=== PATIENT | male | born 1990 | race Caucasian/White ===

== ENCOUNTER 2021-06-12 10:55 | Emergency (ER) | payer MEDICAID ==
[2021-06-12] MEDS ORDERED: Sodium Chloride 0.9% 2.5 ML Syringe FLUSH PRN (11:49)
[2021-06-12] MEDS ORDERED: Sodium Chloride 0.9% 10 ML Syringe FLUSH PRN (11:49)
[2021-06-12] MEDS ORDERED: Diazepam 5 MG Tab PO ONE (11:49)
[2021-06-12] MEDS ORDERED: Ketorolac 30 MG/ML SDV IVPUSH ONE (11:49)
--- NOTE | 2021-06-12 11:53 | EDM.PDOC ---
ED HPI GENERAL MEDICAL PROBLEM - General Chief Complaint: Genitourinary Problem Stated Complaint: PAIN IN BACK SIDES AND STOMACH Time Seen by Provider: 06/12/21 11:38 - History of Present Illness INITIAL COMMENTS - FREE TEXT/NARRATIVE: 31-year-old male presenting with what was initially back pain and is now more left flank pain radiating down into the leg. Family reports that the back pain initially started 4 days ago. Patient reports at that time it was more a midline bilateral lower back pain. Starting over the last 24 hours it has become more severe and focused more on the left side with radiation down the back of the leg. Pain seemed to worsen after going on a bike ride. No dysuria or hematuria no nausea or vomiting. Pain worsens with any movement any as to sit up and stand very slowly. No urinary or bowel incontinence no history of IV drug use. No fevers. Pain currently moderate to severe. Patient concerned about potential kidney stone or kidney pain. back Pain Score (Numeric/FACES): 6 - Related Data Allergies Allergy/AdvReac Type Severity Reaction Status Date / Time No Known Allergies Allergy Verified 06/12/21 11:29 Home Meds: Home Meds . [No Known Home Meds] 06/12/21 [History] Past Medical History - Past Health History Medical/Surgical History: Denies Medical/Surgical History Respiratory History: Reports: Asthma Social & Family History - Family History Family Medical History: No Pertinent Family History - Tobacco Use Tobacco Use Status *Q: Current Every Day Tobacco User Years of Tobacco use: 8 Packs/Tins Daily: 0.5 - Caffeine Use Caffeine Use: Reports: None - Alcohol Use Days Per Week of Alcohol Use: 7 Number of Drinks Per Day: 6 Total Drinks Per Week: 42 - Recreational Drug Use Recreational Drug Use: No ED ROS GENERAL - Review of Systems Review Of Systems: See Below Free Text/Narrative/Comment: General: No fever. Skin: No rash. Eyes: No vision problems. ENT: No sore throat. Neck: No neck stiffness. Respiratory: No shortness of breath. Cardiac: No chest pain. Gastrointestinal: No nausea, vomiting or abdominal pain. Urinary: No dysuria. Musculoskeletal: Per HPI Neurologic: No headache. ED EXAM, GENERAL - Physical Exam Exam: See Below Free Text/Narrative:: General Appearance: No acute distress, appears comfortable Skin: No rash HEENT: Normocephalic/atraumatic, sclera anicteric, mucous membranes moist Neck: Normal range of motion Chest and Lungs: Bilateral breath sounds, clear to auscultation Cardiovascular: Regular rate and rhythm Abdomen: Soft, non-tender Back: No midline tenderness step-off or deformity there is tenderness with mild spasm in the left paraspinal musculature at the levels L4-L5. Strength is 5 out of 5 in the bilateral hips knees and ankles but patient has significant pain with left hip flexion testing as well as left knee flexion testing. Sensation is grossly intact good pulses in the bilateral lower extremities. Musculoskeletal: No edema or tenderness Neurologic: Awake, alert, no obvious deficits, moving all extremities Psychiatric: Appropriate, cooperative Course - Vital Signs Last Recorded V/S: Last Vital Signs Temp 98.5 F 06/12/21 11:29 Pulse 95 06/12/21 11:29 Resp 16 06/12/21 11:29 BP 144/77 H 06/12/21 11:29 Pulse Ox 99 06/12/21 11:29 - Orders/Labs/Meds Orders: Active Orders 24 hr Category Date Time Status Sodium Chloride 0.9% [Saline Flush] Med 06/12/21 11:49 Active 10 ml FLUSH ASDIRECTED PRN Sodium Chloride 0.9% [Saline Flush] Med 06/12/21 11:49 Active 2.5 ml FLUSH ASDIRECTED PRN Saline Lock Insert [OM.PC] Stat Oth 06/12/21 11:49 Ordered Medication Orders Sodium Chloride (Sodium Chloride 0.9% 10 Ml Syringe) 10 ml FLUSH ASDIRECTED PRN PRN Reason: Keep Vein Open Last Admin: 06/12/21 12:14 Dose: 10 ml Documented by: RAFAEL Sodium Chloride (Sodium Chloride 0.9% 2.5 Ml Syringe) 2.5 ml FLUSH ASDIRECTED PRN PRN Reason: Keep Vein Open Last Admin: 06/12/21 12:14 Dose: 2.5 ml Documented by: RAFAEL Labs: Laboratory Tests 06/12/21 06/12/21 06/12/21 Range/Units 11:30 11:30 11:30 WBC 6.64 (4.0-11.0) K/uL RBC 5.25 (4.50-5.90) M/uL Hgb 16.7 (13.0-17.0) g/dL Hct 48.1 (38.0-50.0) % MCV 91.6 (80.0-98.0) fL MCH 31.8 (27.0-32.0) pg MCHC 34.7 (31.0-37.0) g/dL RDW Std Deviation 43.6 (28.0-62.0) fl RDW Coeff of [place] 13 (11.0-15.0) % Plt Count 239 (150-400) K/uL MPV 9.20 (7.40-12.00) fL Neut % (Auto) 49.9 (48.0-80.0) % Lymph % (Auto) 38.9 (16.0-40.0) % [place] % (Auto) 8.3 (0.0-15.0) % Eos % (Auto) 2.4 (0.0-7.0) % Baso % (Auto) 0.5 (0.0-1.5) % Neut # (Auto) 3.3 (1.4-5.7) K/uL Lymph # (Auto) 2.6 H (0.6-2.4) K/uL [place] # (Auto) 0.6 (0.0-0.8) K/uL Eos # (Auto) 0.2 (0.0-0.7) K/uL Baso # (Auto) 0.0 (0.0-0.1) K/uL Nucleated RBC % 0.0 /100WBC Nucleated RBCs # 0 K/uL Sodium 139 (136-148) mmol/L Potassium 4.2 (3.5-5.1) mmol/L Chloride 101 (98-107) mmol/L Carbon Dioxide 26.4 (21.0-32.0) mmol/L BUN 15 (7.0-18.0) mg/dL Creatinine 0.9 (0.8-1.3) mg/dL Est Cr Clr Drug Dosing 120.02 mL/min Estimated GFR (MDRD) > 60.0 ml/min Glucose 113 H (74-106) mg/dL Calcium 9.0 (8.5-10.1) mg/dL Total Bilirubin 0.3 (0.2-1.0) mg/dL AST 28 (15-37) IU/L ALT 67 H (14-63) IU/L Alkaline Phosphatase 82 (46-116) U/L Total Protein 8.1 (6.4-8.2) g/dL Albumin 4.1 (3.4-5.0) g/dL Globulin 4.0 (2.6-4.0) g/dL Albumin/Globulin Ratio 1.0 (0.9-1.6) Lipase 78 (73-393) U/L Urine Color YELLOW Urine Appearance CLEAR Urine pH 7.0 (5.0-8.0) Ur Specific [place] 1.025 (1.001-1.035) Urine Protein NEGATIVE (NEGATIVE) mg/dL Urine Glucose (UA) NEGATIVE (NEGATIVE) mg/dL Urine Ketones NEGATIVE (NEGATIVE) mg/dL Urine Occult Blood NEGATIVE (NEGATIVE) Urine Nitrite NEGATIVE (NEGATIVE) Urine Bilirubin NEGATIVE (NEGATIVE) Urine Urobilinogen 0.2 (<2.0) EU/dL Ur Leukocyte Esterase NEGATIVE (NEGATIVE) Urine RBC 0-1 (0-2/HPF) Urine WBC 0-1 (0-5/HPF) Ur Epithelial Cells RARE (NONE-FEW) Urine Bacteria RARE (NEGATIVE) Meds: Medications Generic Name Dose Route Start Last Admin Trade Name Freq PRN Reason Stop Dose Admin Sodium Chloride 10 ml 06/12/21 11:49 06/12/21 12:14 Sodium Chloride 0.9% 10 Ml Syringe FLUSH 10 ml ASDIRECTED PRN Administration Keep Vein Open Sodium Chloride 2.5 ml 06/12/21 11:49 06/12/21 12:14 Sodium Chloride 0.9% 2.5 Ml Syringe FLUSH 2.5 ml ASDIRECTED PRN Administration Keep Vein Open Discontinued Medications Generic Name Dose Route Start Last Admin Trade Name Freq PRN Reason Stop Dose Admin Diazepam 5 mg 06/12/21 11:49 06/12/21 12:12 Diazepam 5 Mg Tab PO 06/12/21 11:50 5 mg ONETIME ONE Administration Ketorolac Tromethamine 15 mg 06/12/21 11:49 06/12/21 12:13 Ketorolac 30 Mg/Ml Sdv IVPUSH 06/12/21 11:50 15 mg ONETIME ONE Administration Departure - Departure Time of Disposition: 13:28 Disposition: Home, Self-Care 01 Condition: Good Clinical Impression: Lumbar radiculopathy, acute - Discharge Information *PRESCRIPTION DRUG MONITORING PROGRAM REVIEWED*: Not Applicable *COPY OF PRESCRIPTION DRUG MONITORING REPORT IN PATIENT SHARONA: Not Applicable Instructions: Radicular Pain Forms: ED Department Discharge Additional Instructions: Your pain is most likely due to irritation of one of the nerves coming out of your lumbar spine. I recommend that you take 3 200 mg [id number] ibuprofen tablets for a total of 600 mg every 8 hours with food for the next 5 days. If your symptoms worsen or you have any other new symptoms that concern you please call your doctor or return to the ER. If you do not have a primary care doctor you can follow-up with one of the clinics listed below. [facility] [address] [place], [place] [id number] [address] [id number] The following information is given to patients seen in the emergency department who are being discharged to home. This information is to outline your options for follow-up care. We provide all patients seen in our emergency department with a follow-up referral. The need for follow-up, as well as the timing and circumstances, are variable depending upon the specifics of your emergency department visit. If you don't have a primary care physician on staff, we will provide you with a referral. We always advise you to contact your personal physician following an emergency department visit to inform them of the circumstance of the visit and for follow-up with them and/or the need for any referrals to a consulting specialist. The emergency department will also refer you to a specialist when appropriate. This referral assures that you have the opportunity for follow-up care with a specialist. All of these measure are taken in an effort to provide you with optimal care, which includes your follow-up. Under all circumstances we always encourage you to contact your private physician who remains a resource for coordinating your care. When calling for follow-up care, please make the office aware that this follow-up is from your recent emergency room visit. If for any reason you are refused follow-up, please contact the [facility] Emergency Department at and asked to speak to the emergency department charge nurse. Sepsis Event Note (ED) - Evaluation Sepsis Screening Result: No Definite Risk - Focused Exam Vital Signs: Vital Signs Temp Pulse Resp BP Pulse Ox 06/12/21 11:29 98.5 F 95 16 144/77 H 99 - My Orders Last 24 Hours: My Active Orders 06/12/21 11:49 Sodium Chloride 0.9% [Saline Flush] 10 ml FLUSH ASDIRECTED PRN Sodium Chloride 0.9% [Saline Flush] 2.5 ml FLUSH ASDIRECTED PRN Saline Lock Insert [OM.PC] Stat - Assessment/Plan Last 24 Hours: My Active Orders 06/12/21 11:49 Sodium Chloride 0.9% [Saline Flush] 10 ml FLUSH ASDIRECTED PRN Sodium Chloride 0.9% [Saline Flush] 2.5 ml FLUSH ASDIRECTED PRN Saline Lock Insert [OM.PC] Stat Assessment:: 31-year-old male presented with signs and symptoms that are most consistent with lumbar radiculopathy. Patient without signs of cord compression or cauda equina he has no findings that would put him at risk for epidural abscess spinal osteomyelitis or discitis. The character of the pain would be highly atypical for renal colic. The patient quite concerned about this. IV placed prior to my evaluation and labs were drawn. CBC CMP and lipase ordered as well as urinalys is if these suggest renal colic or other acute intra-abdominal process then could consider imaging at that time. 1330: Patient's symptoms have significantly improved with the Toradol and the Valium labs are normal patient discharged with follow-up.
[2021-06-12 12:27] LABS: BLOOD UREA NITROGEN,BUN 15 mg/dL (7.0-18.0); CARBON DIOXIDE,CO2 26.4 mmol/L (21.0-32.0); CHLORIDE,CL 101 mmol/L (98-107); GLUCOSE RANDOM 113 mg/dL (74-106); LIPASE 78 U/L (73-393); POTASSIUM,K 4.2 mmol/L (3.5-5.1); SODIUM,NA 139 mmol/L (136-148)
== END 2021-06-12 13:47 | disposition home or self-care (01) ==
LOC: MW.ED 10:55
DX: M54.16 Radiculopathy, lumbar region (principal); Z72.0 Tobacco use
CPT/HCPCS: 36415; 80053; 81001; 83690; 85025; 96374; 99283; A9270; J1885

== ENCOUNTER 2021-12-28 10:09 | Emergency (ER) | payer OTHER ==
[2021-12-28] MEDS ORDERED: Ketorolac 30 MG/ML SDV IM ONE (12:39)
== END 2021-12-28 14:32 | disposition home or self-care (01) ==
LOC: MW.ED 10:09
DX: S42.002A Fracture of unspecified part of left clavicle, initial encounter for closed fracture (principal); V86.96XA Unspecified occupant of dirt bike or motor/cross bike injured in nontraffic accident, initial encounter; Y92.410 Unspecified street and highway as the place of occurrence of the external cause
CPT/HCPCS: 73030; 73060; 96372; 99283; J1885

== ENCOUNTER 2022-01-11 08:20 | Day surgery (SDC) | payer OTHER ==
[~2022-01-11 08:20] MED LIST: Albuterol 0.083% 2.5 MG/3 ML Neb Soln NEB PRN; HYDROmorphone 1 MG/ML Syringe IVPUSH PRN; Lactated Ringers 1,000 ML IV SCH; Metoclopramide 10 MG/2 ML SDV IVPUSH PRN; Midazolam 1 MG/ML 2 ML SDV ONE; Morphine 4 MG/ML VIAL IVPUSH PRN; Naloxone 0.4 MG/ML SDV IVPUSH PRN; Ondansetron 4 MG/2 ML SDV IVPUSH PRN; Propofol 200 MG/20 ML SDV ONE; Rocuronium 100 MG/10 ML MDV ONE; ceFAZolin 2 GM in Premix Bag 1 BAG IV SCH; fentaNYL 100 MCG/2 ML SDV IVPUSH PRN; fentaNYL 250 MCG/5 ML SDV ONE
[2022-01-11] MEDS ORDERED: Bupivacaine 0.5% 30 ML SDV ONE (08:27)
[2022-01-11] MEDS ORDERED: Ketamine 500 mg/10 ML MDV ONE (08:29)
[2022-01-11] MEDS ORDERED: Bupivacaine 0.25%/EPINEPHrine 1:200,000 10 ML SDV ONE ×2 (09:00→12:21)
[2022-01-11] MEDS ORDERED: Lidocaine 1% with EPINEPHrine 1:100,000 10 ML MDV ONE (09:00)
[2022-01-11] MEDS ORDERED: fentaNYL 250 MCG/5 ML SDV ONE (10:20)
[2022-01-11] MEDS ORDERED: Octyl 2-Cyanoacrylate 1 Tube ONE (12:19)
== END 2022-01-11 14:04 | disposition home or self-care (01) ==
LOC: MW.SDS 08:20
PROVIDERS: ATTEND Orthopaedic Surgery
DX: S42.002A Fracture of unspecified part of left clavicle, initial encounter for closed fracture (principal); J45.909 Unspecified asthma, uncomplicated; F17.210 Nicotine dependence, cigarettes, uncomplicated; V29.3XXA Motorcycle rider (driver) (passenger) injured in unspecified nontraffic accident, initial encounter
CPT/HCPCS: A9270-GY; J2250; J2704; J3010; J3490; J7120

== ENCOUNTER 2022-01-28 12:14 | Emergency (ER) | payer SELFPAY | END 2022-01-28 12:17 | disposition home or self-care (01) | LOC: MW.ED 12:14 | DX: Z00.00 Encounter for general adult medical examination without abnormal findings (principal) | CPT/HCPCS: 99283 ==

== ENCOUNTER 2022-02-02 21:01 | Emergency (ER) | payer MEDICAID ==
[2022-02-02] MEDS ORDERED: Lactated Ringers 1,000 ML IV ONE (21:43)
[2022-02-02] MEDS ORDERED: Acetaminophen/oxyCODONE 325-10 MG Tab PO ONE (22:10)
[2022-02-02 22:25] LABS: BLOOD UREA NITROGEN,BUN 19 mg/dL (7.0-18.0); CARBON DIOXIDE,CO2 29.4 mmol/L (21.0-32.0); CHLORIDE,CL 101 mmol/L (98-107); GLUCOSE RANDOM 82 mg/dL (74-106); POTASSIUM,K 4.6 mmol/L (3.5-5.1); SODIUM,NA 138 mmol/L (136-148)
[2022-02-02 22:27] LABS: ESTIMATED GFR 93 mL/min (>60)
== END 2022-02-02 22:57 | disposition home or self-care (01) ==
LOC: MW.ED 21:01
DX: R55 Syncope and collapse (principal); R25.1 Tremor, unspecified; F17.210 Nicotine dependence, cigarettes, uncomplicated
CPT/HCPCS: 36415; 80053; 80305-QW; 80307; 85025; 93005; 96360; 99284-25; A9270-GY; J7120